=== PATIENT | male | born 1955 | race Asian ===

== ENCOUNTER 2017-02-27 07:14 | Outpatient (CLI) | payer OTHER ==
[~2017-02-27 07:14] MED LIST: AMLO2.5T PO; AMLO5TAB PO; APAP/HYDROCO1 TAB OR; ASPIRIN325 M1 PO; BENZONATATE200 MG PO; CILO100T2 PO; CIPR500T PO; CLONIDINE0.2 MG OR; GABA300C2 PO; HYDR25TA60 PO; LEVEMIR FLEXPEN SC; LEVO0.0218 PO; LEVO500T PO; NOVOLOG SC; PLAVIX75 MG PO; PRAV40TA PO; ZESTRIL40 MG PO
[2017-02-27 08:08] LABS: PLATELET COUNT 207 K/uL (142-355)
[2017-02-27 09:25] LABS: POTASSIUM 4.8 mmol/L (3.6-5.2)
== END 2017-02-27 08:14 | disposition home or self-care (01) ==
LOC: LABW 07:14
PROVIDERS: Internal Medicine
DX: E11.51 Type 2 diabetes mellitus with diabetic peripheral angiopathy without gangrene (principal); R71.8 Other abnormality of red blood cells
CPT/HCPCS: 36415; 80053; 80061; 81000; 82043; 82570; 83036; 84443; 85027

== ENCOUNTER 2017-04-10 12:09 | Outpatient (CLI) | payer OTHER | END 2017-04-10 19:45 | disposition home or self-care (01) | LOC: US 12:09 | DX: R60.0 Localized edema (principal) ==

== ENCOUNTER 2017-05-18 12:11 | Outpatient (CLI) | payer OTHER ==
[2017-05-18 12:49] LABS: PLATELET COUNT 178 K/uL (142-355)
[2017-05-18 13:20] LABS: POTASSIUM 5.1 mmol/L (3.6-5.2)
== END 2017-05-18 13:15 | disposition home or self-care (01) ==
LOC: LABW 12:11
PROVIDERS: Physician Assistant
DX: E11.51 Type 2 diabetes mellitus with diabetic peripheral angiopathy without gangrene (principal); R35.1 Nocturia; N40.0 Benign prostatic hyperplasia without lower urinary tract symptoms
CPT/HCPCS: 36415; 80053; 83036; 84153; 85027

== ENCOUNTER 2017-11-21 08:13 | Outpatient (CLI) | payer OTHER ==
[2017-11-21 08:51] LABS: PLATELET COUNT 240 K/uL (142-355)
[2017-11-21 09:10] LABS: POTASSIUM 4.2 mmol/L (3.6-5.2)
== END 2017-11-21 19:05 | disposition home or self-care (01) ==
LOC: LABW 08:13
PROVIDERS: Internal Medicine
DX: E11.9 Type 2 diabetes mellitus without complications (principal)
CPT/HCPCS: 36415; 80053; 80061; 81000; 82043; 82570; 83036; 84443; 85027

== ENCOUNTER 2017-12-21 11:36 | Outpatient (CLI) | payer OTHER ==
[2017-12-21 11:55] LABS: POTASSIUM 4.1 mmol/L (3.6-5.2)
== END 2017-12-21 21:52 | disposition home or self-care (01) ==
LOC: LAB 11:36
PROVIDERS: Emergency Medicine Undersea and Hyperbaric Medicine
DX: Z79.2 Long term (current) use of antibiotics (principal); Z45.2 Encounter for adjustment and management of vascular access device; E11.622 Type 2 diabetes mellitus with other skin ulcer
CPT/HCPCS: 80053; 80202

== ENCOUNTER 2017-12-24 11:31 | Outpatient (CLI) | payer OTHER ==
[2017-12-24 11:46] LABS: POTASSIUM 3.9 mmol/L (3.6-5.2)
== END 2017-12-24 21:11 | disposition home or self-care (01) ==
LOC: LAB 11:31
PROVIDERS: Emergency Medicine Undersea and Hyperbaric Medicine
DX: E11.622 Type 2 diabetes mellitus with other skin ulcer (principal)
CPT/HCPCS: 80053; 80202; 86140

== ENCOUNTER 2017-12-28 09:15 | Outpatient (CLI) | payer OTHER | END 2017-12-28 19:23 | disposition home or self-care (01) | LOC: LAB 09:15 | PROVIDERS: Emergency Medicine Undersea and Hyperbaric Medicine | DX: M86.4 Chronic osteomyelitis with draining sinus (principal); E11.622 Type 2 diabetes mellitus with other skin ulcer | CPT/HCPCS: 80053; 80202 ==

== ENCOUNTER 2017-12-31 11:06 | Outpatient (CLI) | payer OTHER ==
[2017-12-31 11:58] LABS: POTASSIUM 4.4 mmol/L (3.6-5.2)
== END 2017-12-31 20:25 | disposition home or self-care (01) ==
LOC: LAB 11:06
PROVIDERS: Emergency Medicine Undersea and Hyperbaric Medicine
DX: M86.272 Subacute osteomyelitis, left ankle and foot (principal); L97.521 Non-pressure chronic ulcer of other part of left foot limited to breakdown of skin; E11.621 Type 2 diabetes mellitus with foot ulcer
CPT/HCPCS: 80053; 80202; 85651; 86140

== ENCOUNTER 2018-01-07 12:07 | Outpatient (CLI) | payer OTHER ==
[2018-01-07 13:24] LABS: POTASSIUM 3.7 mmol/L (3.6-5.2)
== END 2018-01-07 19:20 | disposition home or self-care (01) ==
LOC: LAB 12:07
PROVIDERS: Emergency Medicine Undersea and Hyperbaric Medicine
DX: E11.621 Type 2 diabetes mellitus with foot ulcer (principal); L97.521 Non-pressure chronic ulcer of other part of left foot limited to breakdown of skin; M86.272 Subacute osteomyelitis, left ankle and foot
CPT/HCPCS: 80053; 80202; 85651; 86140

== ENCOUNTER 2018-01-14 10:43 | Outpatient (CLI) | payer OTHER ==
[2018-01-14 11:05] LABS: POTASSIUM 4.6 mmol/L (3.6-5.2)
== END 2018-01-14 19:37 | disposition home or self-care (01) ==
LOC: LAB 10:43
PROVIDERS: Emergency Medicine Undersea and Hyperbaric Medicine
DX: E11.621 Type 2 diabetes mellitus with foot ulcer (principal); L97.521 Non-pressure chronic ulcer of other part of left foot limited to breakdown of skin; M86.272 Subacute osteomyelitis, left ankle and foot; Z79.2 Long term (current) use of antibiotics
CPT/HCPCS: 80053; 80202; 85651; 86140

== ENCOUNTER 2018-01-21 10:34 | Outpatient (CLI) | payer OTHER ==
[2018-01-21 11:54] LABS: POTASSIUM 4.1 mmol/L (3.6-5.2)
== END 2018-01-21 20:07 | disposition home or self-care (01) ==
LOC: LAB 10:34
PROVIDERS: Emergency Medicine Undersea and Hyperbaric Medicine
DX: E11.621 Type 2 diabetes mellitus with foot ulcer (principal); M86.4 Chronic osteomyelitis with draining sinus
CPT/HCPCS: 80053; 80202; 85651; 86140

== ENCOUNTER 2018-01-28 11:54 | Outpatient (CLI) | payer OTHER | END 2018-01-28 19:21 | disposition home or self-care (01) | LOC: LAB 11:54 | PROVIDERS: Emergency Medicine Undersea and Hyperbaric Medicine | DX: E11.621 Type 2 diabetes mellitus with foot ulcer (principal) | CPT/HCPCS: 80053; 80202; 85651 ==

== ENCOUNTER 2018-02-14 15:13 | Outpatient (CLI) | payer OTHER | END 2018-02-14 22:58 | disposition home or self-care (01) | LOC: US 15:13 | DX: M79.89 Other specified soft tissue disorders (principal) ==

== ENCOUNTER 2018-06-27 09:23 | Outpatient (CLI) | payer OTHER ==
[2018-06-27 10:01] LABS: PLATELET COUNT 199 K/uL (142-355)
[2018-06-27 10:29] LABS: POTASSIUM 5.2 mmol/L (3.6-5.2)
== END 2018-06-27 19:17 | disposition home or self-care (01) ==
LOC: LABW 09:23
PROVIDERS: Internal Medicine
DX: E11.621 Type 2 diabetes mellitus with foot ulcer (principal)
CPT/HCPCS: 36415; 80053; 80061; 81000; 82043; 82570; 83036; 84439; 84443; 85027

== ENCOUNTER 2018-07-03 12:42 | Outpatient (CLI) | payer OTHER | END 2018-07-03 22:21 | disposition home or self-care (01) | LOC: US 12:42 | DX: N18.4 Chronic kidney disease, stage 4 (severe) (principal) ==

== ENCOUNTER 2018-08-19 10:11 | Outpatient (CLI) | payer OTHER ==
[2018-08-19 10:56] LABS: PLATELET COUNT 233 K/uL (142-355)
[2018-08-19 11:58] LABS: POTASSIUM 4.5 mmol/L (3.6-5.2)
== END 2018-08-19 23:29 | disposition home or self-care (01) ==
LOC: LABW 10:11
PROVIDERS: Internal Medicine
DX: E11.9 Type 2 diabetes mellitus without complications (principal); Z79.899 Other long term (current) drug therapy; N18.4 Chronic kidney disease, stage 4 (severe); Z89.512 Acquired absence of left leg below knee; R53.82 Chronic fatigue, unspecified
CPT/HCPCS: 36415; 80053; 80074; 81000; 82043; 82306; 82330; 82550; 82552; 82570; 82607; 82728; 82746; 83036; 83735; 83970; 84100; 84155; 84439; 84443; 84550; 85027; 85651; 86430

== ENCOUNTER 2018-10-08 10:26 | Inpatient (IN) | payer OTHER ==
[~2018-10-08] VITALS: Ht 180.3 cm; Wt 94.6 kg
[2018-10-08 10:28] VITALS: BP 195/84; TEMP 97.7
[2018-10-08 11:03] LABS: PLATELET COUNT 202 K/uL (142-355)
[2018-10-08 11:11] LABS: POTASSIUM 4.3 mmol/L (3.6-5.2)
[2018-10-08 11:25] LABS: PARTIAL THROMBOPLASTIN TIME 27.7 SECONDS (24.5-33.6)
[2018-10-08 16:49] VITALS: BP 229/88; TEMP 97.4; Ht 180.3 cm; Wt 94.6 kg
[2018-10-08] MEDS ORDERED: FURO40TA93 PO (18:15)
[2018-10-08] MEDS ORDERED: CYCL10TA35 PO (18:18)
[2018-10-08] MEDS ORDERED: GLIP10TA55 PO (18:20)
[2018-10-08] MEDS ORDERED: DOK100 MG PO (18:22)
[2018-10-08 20:00] VITALS: BP 178/92; TEMP 98.5
[2018-10-09 00:20] VITALS: BP 180/90; TEMP 98.8
[2018-10-09 04:00] VITALS: BP 178/88; BP 202/94; TEMP 98.8
[2018-10-09 06:20] LABS: PLATELET COUNT 188 K/uL (142-355)
[2018-10-09 08:00] VITALS: BP 162/49; TEMP 97.5
[2018-10-09 12:00] VITALS: BP 170/52; TEMP 97.9
[2018-10-09 16:00] VITALS: BP 198/87; TEMP 98.2
[2018-10-09 20:45] VITALS: BP 198/90; TEMP 98.7
[2018-10-10] VITALS: BP 195/93; TEMP 98.9
[2018-10-10 04:00] VITALS: BP 196/78; TEMP 97.9
[2018-10-10 05:59] LABS: PLATELET COUNT 198 K/uL (142-355)
[2018-10-10 06:24] LABS: POTASSIUM 4.3 mmol/L (3.6-5.2)
[2018-10-10 08:00] VITALS: BP 206/95; TEMP 97.8
[2018-10-10 12:00] VITALS: BP 207/92; TEMP 98.3
[2018-10-10 16:01] VITALS: BP 214/99; TEMP 98.8
[2018-10-10 20:00] VITALS: BP 198/98; TEMP 98.6
[2018-10-11 00:30] VITALS: BP 146/71; TEMP 97.8
[2018-10-11 04:22] VITALS: BP 193/71; TEMP 97.9
[2018-10-11 09:08] VITALS: BP 173/83; TEMP 98.5
== END 2018-10-11 11:15 | disposition home or self-care (01) | DRG 65 ==
LOC: ED 10:26 → MED/SURG 14:20
PROVIDERS: Internal Medicine; ADMIT Family Medicine
DX: I63.412 Cerebral infarction due to embolism of left middle cerebral artery (principal); N18.4 Chronic kidney disease, stage 4 (severe); I69.354 Hemiplegia and hemiparesis following cerebral infarction affecting left non-dominant side; G81.91 Hemiplegia, unspecified affecting right dominant side; I12.9 Hypertensive chronic kidney disease with stage 1 through stage 4 chronic kidney disease, or unspecified chronic kidney disease; E11.22 Type 2 diabetes mellitus with diabetic chronic kidney disease; I25.10 Atherosclerotic heart disease of native coronary artery without angina pectoris; E11.319 Type 2 diabetes mellitus with unspecified diabetic retinopathy without macular edema; E11.40 Type 2 diabetes mellitus with diabetic neuropathy, unspecified; E03.8 Other specified hypothyroidism; I73.89 Other specified peripheral vascular diseases; Z89.512 Acquired absence of left leg below knee
CPT/HCPCS: 36415; 80053; 80069; 80307; 81000; 82948; 83036; 85027; 85379; 85610; 85730; 93005; 93306; 96372; 99283; J1650; J1815; J3490

== ENCOUNTER 2019-01-13 11:22 | Outpatient (CLI) | payer OTHER ==
[~2019-01-13 11:22] MED LIST changes: +CYCL10TA35 PO; +DOK100 MG PO; +FURO40TA93 PO; +GLIP10TA55 PO
== END 2019-01-13 19:59 | disposition home or self-care (01) ==
LOC: RAD 11:22
DX: M79.605 Pain in left leg (principal)

== ENCOUNTER 2019-02-11 13:09 | Emergency (ER) | payer OTHER ==
[~2019-02-11] VITALS: Ht 180.3 cm; Wt 99.8 kg
[2019-02-11 14:10] LABS: PLATELET COUNT 266 K/uL (142-355)
[2019-02-11 14:25] LABS: POTASSIUM 5.4 mmol/L (3.6-5.2)
[2019-02-11 22:55] VITALS: BP 155/88; TEMP 97.8
== END 2019-02-11 22:55 | disposition short-term general hospital (02) ==
LOC: ED 13:09
PROVIDERS: Family Medicine
DX: I12.9 Hypertensive chronic kidney disease with stage 1 through stage 4 chronic kidney disease, or unspecified chronic kidney disease (principal); N17.9 Acute kidney failure, unspecified; Z74.01 Bed confinement status
CPT/HCPCS: 80053; 81000; 82962; 85027; 93005; 96365; 96374; 96375; 96376; 99284; J1815; J2405; J3490

== ENCOUNTER 2019-02-11 23:43 | Outpatient (CLI) | payer OTHER | END 2019-02-12 00:23 | disposition short-term general hospital (02) | LOC: AMB 23:43 | DX: I12.9 Hypertensive chronic kidney disease with stage 1 through stage 4 chronic kidney disease, or unspecified chronic kidney disease (principal); N17.9 Acute kidney failure, unspecified; Z74.01 Bed confinement status | CPT/HCPCS: A0425; A0429 ==

== ENCOUNTER 2019-04-02 21:18 | Emergency (ER) | payer OTHER ==
[~2019-04-02] VITALS: Ht 180.3 cm; Wt 99.8 kg
[2019-04-02 22:07] VITALS: BP 193/89; TEMP 99.8
== END 2019-04-02 22:08 | disposition home or self-care (01) ==
LOC: ED 21:18
DX: L02.31 Cutaneous abscess of buttock (principal)
CPT/HCPCS: 99282

== ENCOUNTER 2019-04-05 13:58 | Emergency (ER) | payer OTHER ==
[~2019-04-05] VITALS: Ht 180.3 cm; Wt 99.8 kg
[2019-04-05 14:40] VITALS: TEMP 98.1
[2019-04-05 15:27] LABS: PLATELET COUNT 302 K/uL (142-355)
[2019-04-05 15:40] LABS: POTASSIUM 3.8 mmol/L (3.6-5.2)
[2019-04-05 17:25] VITALS: BP 130/82
== END 2019-04-05 17:48 | disposition home or self-care (01) ==
LOC: ED 13:58
PROVIDERS: Emergency Medicine
DX: R11.2 Nausea with vomiting, unspecified (principal); E11.65 Type 2 diabetes mellitus with hyperglycemia
CPT/HCPCS: 36600; 80053; 81002; 82805; 85027; 96361; 96374; 99284; J2405

== ENCOUNTER 2019-04-17 13:29 | Emergency (ER) | payer OTHER ==
[~2019-04-17] VITALS: Ht 180.3 cm; Wt 102.1 kg
[2019-04-17 13:34] VITALS: TEMP 97.9
[2019-04-17] MEDS ORDERED: GLYBURIDE2.5 M1 PO (13:48)
[2019-04-17] MEDS ORDERED: SIMV20TA2 PO (13:48)
[2019-04-17] MEDS ORDERED: CARV12.5 PO (13:49)
[2019-04-17] MEDS ORDERED: RAYALDEE30 MCG PO (13:50)
[2019-04-17] MEDS ORDERED: HYDR100TA PO (13:51)
[2019-04-17] MEDS ORDERED: SODI650T PO (13:51)
[2019-04-17 14:50] VITALS: BP 137/63
== END 2019-04-17 14:50 | disposition home or self-care (01) ==
LOC: ED 13:29
DX: S09.8XXA Other specified injuries of head, initial encounter (principal); S00.212A Abrasion of left eyelid and periocular area, initial encounter; S00.81XA Abrasion of other part of head, initial encounter; S00.12XA Contusion of left eyelid and periocular area, initial encounter; W05.0XXA Fall from non-moving wheelchair, initial encounter; Y92.89 Other specified places as the place of occurrence of the external cause
CPT/HCPCS: 90471; 90715; 99283

== ENCOUNTER 2019-09-15 13:36 | Outpatient (CLI) | payer OTHER ==
[~2019-09-15 13:36] MED LIST changes: +BASAGLAR K100 UNIT/M SC; +CARV12.5 PO; +CLON0.1T16 PO; +GLYBURIDE2.5 M1 PO; +HYDR100TA PO; +HYDRALAZINE10 MG PO; +RAYALDEE30 MCG PO; +SIMV20TA2 PO; +SODI650T PO
== END 2019-09-15 13:37 | disposition short-term general hospital (02) ==
LOC: AMB 13:36
DX: R55 Syncope and collapse (principal); R11.10 Vomiting, unspecified; Z99.2 Dependence on renal dialysis
CPT/HCPCS: A0425; A0427

== ENCOUNTER 2019-09-15 13:47 | Emergency (ER) | payer OTHER ==
[~2019-09-15] VITALS: Ht 180.3 cm; Wt 92.1 kg
[2019-09-15 15:21] LABS: PLATELET COUNT 237 K/uL (142-355)
[2019-09-15 15:35] LABS: POTASSIUM 3.8 mmol/L (3.6-5.2)
[2019-09-15 20:29] VITALS: BP 127/72; TEMP 97.3
== END 2019-09-15 20:33 | disposition short-term general hospital (02) ==
LOC: ED 13:47
PROVIDERS: Emergency Medicine
PROC: 30233N1 Transfusion of Nonautologous Red Blood Cells into Peripheral Vein, Percutaneous Approach (ICD-10-PCS; principal; 2019-09-15)
DX: R55 Syncope and collapse (principal); K92.1 Melena; Z99.2 Dependence on renal dialysis; Z79.899 Other long term (current) drug therapy
CPT/HCPCS: 36430; 80053; 82150; 82272; 83605; 83690; 84484; 85027; 86850; 86900; 86901; 86922; 87502; 93005; 96360; 96374; 96375; 99285; J3490; P9016